=== PATIENT | male | born 1985 | race Caucasian/White ===

== ENCOUNTER 2024-05-18 10:10 | Day surgery (SDC) | payer OTHER ==
[~2024-05-18] VITALS: Ht 188 cm; Wt 87.5 kg
[~2024-05-18 10:10] MED LIST: LIDOJEL RC; LR 1,000 ML IV SCH; Ondansetron 4 MG/2 ML VIAL IV PRN
[2024-05-18] MEDS ORDERED: LEVBID0.375 MG PO (10:54)
[2024-05-18 10:56] VITALS: BP 112/64; PULSE 63; TEMP 97.6
[2024-05-18] MEDS ORDERED: Lidocaine PF 2% (20 MG/ML) 5 ML VIAL ONE (11:15)
[2024-05-18 12:05] VITALS: BP 107/69; PULSE 61; TEMP 97.6
[2024-05-18 12:20] VITALS: BP 113/74; PULSE 60
[2024-05-18 13:11] VITALS: BP 107/69; PULSE 61
--- NOTE | 2024-05-18 13:42 | NUR ---
1205- Patient returns from procedure on cart, ambulates to recliner chair with assist of two. IV fluids infusing to right hand IV without issue. Feet elevated on recliner. VSS. Muffin, water, and coffee given to patient. at bedside. 1220- Discharge instructions reviewed, questions answered. 1225- IV site removed, pt dressed at this time. 1338- Dr. aGrduno in room to speak with patient. 1245- Pt down to wifes car via w/c. Denies any complaints.
== END 2024-05-18 12:45 | disposition home or self-care (01) ==
LOC: SDCO 10:10
DX: D12.5 Benign neoplasm of sigmoid colon (principal); K31.89 Other diseases of stomach and duodenum; R19.5 Other fecal abnormalities; R15.2 Fecal urgency; R19.4 Change in bowel habit; R14.0 Abdominal distension (gaseous); R76.8 Other specified abnormal immunological findings in serum; R19.8 Other specified symptoms and signs involving the digestive system and abdomen; R10.84 Generalized abdominal pain
CPT/HCPCS: J2704